=== PATIENT | male | born 1985 | race Caucasian/White ===

== ENCOUNTER 2024-05-19 12:59 | Emergency (ER) | payer OTHER ==
[~2024-05-19] VITALS: Ht 175.3 cm; Wt 90.7 kg
[2024-05-19] MEDS ORDERED: LIDOCAINE HCL 2% 20 ML VIAL ONE (13:11)
[2024-05-19] MEDS ORDERED: TDAP DIPH,PERTUSS,TET VAC/PF 0.5 ML DISP.SYRIN IM ONE (13:17)
[2024-05-19] MEDS: TDAP DIPH,PERTUSS,TET VAC/PF 0.5 ML DISP.SYRIN IM ONE (13:20)
[2024-05-19] MEDS: LIDOCAINE HCL 2% 20 ML VIAL TP ONE (13:20)
[2024-05-19] MEDS ORDERED: BACITRACIN ZINC OINT 15 GM TUBE ONE (14:16)
[2024-05-19] MEDS: BACITRACIN ZINC OINT 15 GM TUBE TOP ONE (14:16)
[2024-05-19 14:18] VITALS: BP 136/72; TEMP 98; O2SAT 98
== END 2024-05-19 14:28 | disposition home or self-care (01) ==
LOC: ER 13:06
DX: S61.012A Laceration without foreign body of left thumb without damage to nail, initial encounter (principal); F31.9 Bipolar disorder, unspecified; Z88.0 Allergy status to penicillin; W26.0XXA Contact with knife, initial encounter; Y93.89 Activity, other specified; Y92.89 Other specified places as the place of occurrence of the external cause; Y99.8 Other external cause status
CPT/HCPCS: 12002; 90471; 90715; 99283; J3490; A4606; A4663

== ENCOUNTER 2024-06-02 18:01 | Emergency (ER) | payer BC, OTHER ==
[~2024-06-02] VITALS: Ht 175.3 cm; Wt 90.7 kg
[2024-06-02 19:15] VITALS: BP 126/78; TEMP 97.7; O2SAT 99
== END 2024-06-02 19:19 | disposition home or self-care (01) ==
LOC: ER 18:02
DX: S61.012A Laceration without foreign body of left thumb without damage to nail, initial encounter (principal); Z88.0 Allergy status to penicillin; W26.0XXA Contact with knife, initial encounter; Y93.89 Activity, other specified; Y92.89 Other specified places as the place of occurrence of the external cause; Y99.8 Other external cause status
CPT/HCPCS: A4606; A4663

== ENCOUNTER 2024-10-28 20:30 | Emergency (ER) | payer BC ==
[~2024-10-28] VITALS: Ht 175.3 cm; Wt 81.6 kg
[2024-10-28] MEDS ORDERED: ACETAMINOPHEN 500 MG TABLET ONE (20:54)
[2024-10-28] MEDS ORDERED: METOCLOPRAMIDE HCL 10 MG/2 ML VIAL ONE (20:55)
[2024-10-28] MEDS ORDERED: diphenhydrAMINE 50 MG/1 ML VIAL ONE (20:55)
[2024-10-28] MEDS ORDERED: KETOROLAC TROMETHAMINE 15 MG INJ ONE (20:55)
[2024-10-28] MEDS: IV NORMAL SALINE 500 ML BAG IV ONE (20:55)
[2024-10-28 21:01] LABS: BASOPHILS # (AUTO) 0.1 K/UL (0.0-0.2); BASOPHILS % (AUTO) 0.6 % (0.0-2.0); EOSINOPHILS # (AUTO) 0.1 K/uL (0.0-0.7); EOSINOPHILS % (AUTO) 0.6 % (0.0-7.0); HEMATOCRIT 46.4 % (36.7-47.1); HEMOGLOBIN 15.7 g/dL (12.5-16.3); LYMPHOCYTES # (AUTO) 1.5 K/uL (0.8-4.8); LYMPHOCYTES % (AUTO) 11.5 % (20.5-51.5); MEAN CORPUSCULAR HEMOGLOBIN 31.1 uug (23.8-33.4); MEAN CORPUSCULAR HGB CONC 34 g/dL (32.5-36.3); MONOCYTES # (AUTO) 0.9 K/uL (0.1-1.30); MONOCYTES % (AUTO) 6.3 % (0.0-11.0); NEUTROPHILS # (AUTO) 10.9 K/uL (1.8-8.9); PLATELET COUNT (AUTO) 285 K/uL (152-348); RED BLOOD CELL COUNT(AUTO) 5.05 MIL/uL (4.06-5.63); WHITE BLOOD COUNT (AUTO) 13.5 K/uL (3.6-10.2)
[2024-10-28 21:03] LABS: DIFFERENTIAL COMMENT 1
[2024-10-28] MEDS: diphenhydrAMINE 50 MG/1 ML VIAL IV ONE (21:04)
[2024-10-28] MEDS: METOCLOPRAMIDE HCL 10 MG/2 ML VIAL IV ONE (21:04)
[2024-10-28] MEDS: KETOROLAC TROMETHAMINE 15 MG INJ IVP ONE (21:06)
[2024-10-28] MEDS: ACETAMINOPHEN 500 MG TABLET PO ONE (21:06)
[2024-10-28 21:09] LABS: C-REACTIVE PROTEIN 0.08 mg/dL (0.00-0.30)
[2024-10-28 21:12] LABS: ALBUMIN 4.6 g/dL (3.4-5.0); BILIRUBIN,TOTAL 0.4 mg/dL (0.2-1.0); CALCIUM 10.2 mg/dL (8.5-10.1); MAGNESIUM 2.2 mg/dL (1.8-2.4); POTASSIUM 3.7 mmol/L (3.5-5.1); TOTAL PROTEIN, SERUM 8.7 g/dL (6.4-8.2)
[2024-10-28] MEDS ORDERED: ONDA4TAB5 PO (21:33)
[2024-10-28] MEDS ORDERED: ASPI-966 PO (21:33)
[2024-10-28 22:05] VITALS: BP 139/85; TEMP 97.7; O2SAT 98
== END 2024-10-28 21:40 | disposition home or self-care (01) ==
LOC: ER 20:42
DX: R10.9 Unspecified abdominal pain (principal); R11.0 Nausea; R51.9 Headache, unspecified; F31.9 Bipolar disorder, unspecified; K21.9 Gastro-esophageal reflux disease without esophagitis; Z79.82 Long term (current) use of aspirin; Z20.822 Contact with and (suspected) exposure to COVID-19; Z88.0 Allergy status to penicillin
CPT/HCPCS: 99284; 96374; 96375; 96361; 87426; 87804 ×2; 80053; 83690; 83735; 85025; 86140; 36415; 83605; J1200; J1885; J2765; J7040; A4606; A4663; A9150

== ENCOUNTER → 2025-03-09 | Emergency (ER) | payer BC ==
[~2025-03-09] VITALS: Ht 175.3 cm; Wt 72.6 kg
[~2025-03-09] MED LIST: ASPI-966 PO; DICY20TA11 PO; ONDA4TAB11 PO; ONDA4TAB5 PO; ONDANSETRON 4 MG/2 ML VIAL ONE
[2025-03-09] MEDS: IV NORMAL SALINE 1000 ML BAG IV ONE ×2 (00:45→01:37)
[2025-03-09] MEDS: ONDANSETRON 4 MG/2 ML VIAL IV ONE (00:46)
[2025-03-09 00:52] LABS: BASOPHILS % (AUTO) 0.4 % (0.0-2.0); EOSINOPHILS % (AUTO) 0.5 % (0.0-7.0); HEMATOCRIT 47.3 % (36.7-47.1); HEMOGLOBIN 16.7 g/dL (12.5-16.3); LYMPHOCYTES # (AUTO) 1.2 K/uL (0.8-4.8); LYMPHOCYTES % (AUTO) 14.9 % (20.5-51.5); MEAN CORPUSCULAR HEMOGLOBIN 32.4 uug (23.8-33.4); MEAN CORPUSCULAR HGB CONC 35 g/dL (32.5-36.3); MEAN CORPUSCULAR VOLUME 91.7 fL (73.0-96.2); MONOCYTES # (AUTO) 0.8 K/uL (0.1-1.30); MONOCYTES % (AUTO) 9.7 % (0.0-11.0); NEUTROPHILS # (AUTO) 5.9 K/uL (1.8-8.9); NEUTROPHILS % (AUTO) 74.5 % (38.5-71.5); PLATELET COUNT (AUTO) 258 K/uL (152-348); RED BLOOD CELL COUNT(AUTO) 5.16 MIL/uL (4.06-5.63); WHITE BLOOD COUNT (AUTO) 7.9 K/uL (3.6-10.2)
[2025-03-09 00:58] LABS: DIFFERENTIAL COMMENT 1
[2025-03-09 01:01] LABS: CALCIUM 9.7 mg/dL (8.5-10.1); POTASSIUM 3.8 mmol/L (3.5-5.1)
[2025-03-09 01:07] LABS: ALBUMIN 4.4 g/dL (3.4-5.0); BILIRUBIN,DIRECT 0.2 mg/dL (0.0-0.2); BILIRUBIN,TOTAL 0.5 mg/dL (0.2-1.0); TOTAL PROTEIN, SERUM 8.4 g/dL (6.4-8.2)
[2025-03-09 02:33] VITALS: BP 136/96; O2SAT 99
== END | disposition home or self-care (01) ==
LOC: ER 00:10
DX: R10.84 Generalized abdominal pain (principal); R11.0 Nausea; R19.7 Diarrhea, unspecified; F17.210 Nicotine dependence, cigarettes, uncomplicated; K58.9 Irritable bowel syndrome, unspecified; Z79.82 Long term (current) use of aspirin; Z88.0 Allergy status to penicillin
CPT/HCPCS: 99284; 96374; 96361 ×2; 99406; 80076; 80048; 83690; 85025; 36415; 74021; J2405; J7040; A4606; A4663